=== PATIENT | female | born 1955 | race Caucasian/White ===

== ENCOUNTER 2016-10-05 06:47 | Day surgery (SDC) | payer OTHER ==
[~2016-10-05 06:47] MED LIST: Buffered Lidocaine 0.9% SYRIN* 5 ML/SYR SYRINGE INTRADERM ONE; Famotidine IV* 10 MG/ML 2 ML (20 mg) IV ONE; Metoclopramide TAB* 10 MG PO ONE
[2016-10-05] MEDS ORDERED: Bupivacaine 0.5% SDV PF* 30 ML VIAL ONE (07:02)
[2016-10-05] MEDS ORDERED: Metoclopramide TAB* 10 MG ONE (07:10)
[2016-10-05] MEDS ORDERED: Famotidine IV* 10 MG/ML 2 ML (20 mg) ONE (07:10)
[2016-10-05] MEDS ORDERED: ceFAZolin 2 GM PREMIX(*) 2 GM/50 ML BAG IVPB ONE (07:10)
[2016-10-05] MEDS ORDERED: Ketorolac INJ* 30 MG/ML 1 ML VIAL ONE (07:29)
[2016-10-05] MEDS ORDERED: Lidocaine 2% PF * 5 ML VIAL ONE (07:29)
[2016-10-05] MEDS ORDERED: Dexamethasone IV* 4 MG/ML 1 ML (4 MG) ONE (07:29)
[2016-10-05] MEDS ORDERED: Ondansetron INJ* 2 MG/ML VIAL ONE (07:29)
[2016-10-05] MEDS ORDERED: fentaNYL* 50 MCG/ML 2 ML VIAL (100 MCG VIAL) ONE ×2 (07:29→09:16)
[2016-10-05] MEDS ORDERED: Propofol* 10 MG/ML 20 ML BTL IV PUSH ONE ×2 (07:29→08:38)
[2016-10-05] MEDS ORDERED: KETAMINE HCL* 50 MG/ML 10 ML VIAL ONE (07:30)
[2016-10-05] MEDS ORDERED: Midazolam* 1 MG/ML 5 ML VIAL (5 MG) ONE (07:30)
[2016-10-05] MEDS ORDERED: Lidocaine 1% INJ* 10 MG/ML 30 ML SDV ONE (08:05)
[2016-10-05] MEDS ORDERED: Midazolam* 1 MG/ML 2 ML VIAL (2 MG) ONE (08:09)
[2016-10-05] MEDS ORDERED: Ondansetron INJ* 2 MG/ML VIAL IV PRN (08:34)
[2016-10-05] MEDS ORDERED: oxyCODONE/Acetamin 5/325 MG* TAB PO PRN (08:34)
[2016-10-05] MEDS ORDERED: oxyCODONE/Acetamin 5/325 MG* TAB ONE (08:59)
[2016-10-05] MEDS: fentaNYL* 50 MCG/ML 2 ML VIAL (100 MCG VIAL) IV PRN ×2 (09:17→09:42)
[2016-10-05 10:09] VITALS: BP 146/62
--- NOTE | 2016-10-06 13:26 | OP ---
DATE OF OPERATION: 10/05/16 [facility] DATE OF : 53. SURGEON: Hawk Turner MD. PHARMACEUTICAL DEVELOPMENT TECHNICIAN: Sandra Wright PA-C. ANESTHESIOLOGIST: Tyree Judge MD ANESTHESIA: MAC PRE-OP DIAGNOSIS: Painful hardware, right fibula. POST-OP DIAGNOSIS: Painful hardware, right fibula. OPERATIVE PROCEDURE: Removal of right fibular plate. DESCRIPTION OF PROCEDURE: The patient was taken to the operating room where lateral longitudinal incision was made over the distal fibula. We identified the lateral one-third tubular plate, which was removed once the small fragment screws were removed. There was also a front to back lag screw, which was removed as well. We then irrigated it thoroughly, closing with Vicryl and nylon sutures and a compression dressing applied. [id number]/[facility] #: [id number] MTDD
== END 2016-10-05 10:09 | disposition home or self-care (01) ==
LOC: OR 06:47
PROVIDERS: ATTEND Orthopaedic Surgery
DX: T84.84XA Pain due to internal orthopedic prosthetic devices, implants and grafts, initial encounter (principal); Y79.2 Prosthetic and other implants, materials and accessory orthopedic devices associated with adverse incidents; I10 Essential (primary) hypertension; M47.816 Spondylosis without myelopathy or radiculopathy, lumbar region
CPT/HCPCS: 88300; A9270-GY; J0690; J1100; J1885; J2001; J2250; J2405; J2704; J3010

== ENCOUNTER 2017-10-15 12:15 | Emergency (ER) | payer OTHER ==
[2017-10-15 12:49] VITALS: BP 183/86
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
--- NOTE | 2017-10-15 14:38 | RAD ---
INDICATION: Pain of the third phalanx after traumatic injury 5 days earlier COMPARISON: None. TECHNIQUE: 3 views of the right foot were obtained. FINDINGS: Depicted best in the AP view, there is an obliquely oriented nondisplaced fracture spanning the right third toe proximal phalanx diaphysis. Remaining visualized bones are intact and appropriately aligned. Incidentally noted is an enthesophyte at the origin of the plantar fascia on the calcaneal tubercle. IMPRESSION: FRACTURED RIGHT THIRD TOE PROXIMAL PHALANX.
== END 2017-10-15 15:25 | disposition home or self-care (01) ==
LOC: UCEAST 12:15
DX: S92.514A Nondisplaced fracture of proximal phalanx of right lesser toe(s), initial encounter for closed fracture (principal); W22.8XXA Striking against or struck by other objects, initial encounter; Y93.9 Activity, unspecified; Y92.9 Unspecified place or not applicable; I10 Essential (primary) hypertension; Z82.49 Family history of ischemic heart disease and other diseases of the circulatory system
CPT/HCPCS: 99211; G0463

== ENCOUNTER 2018-11-09 15:17 | Emergency (ER) | payer MEDICARE, OTHER ==
[2018-11-09 15:26] VITALS: BP 181/101
[2018-11-09] MEDS ORDERED: Ibuprofen TAB* 600 MG PO ONE (15:41)
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
== END 2018-11-09 17:29 | disposition home or self-care (01) ==
LOC: UCEAST 15:17
DX: M79.674 Pain in right toe(s) (principal); M79.661 Pain in right lower leg; S92.501D Displaced unspecified fracture of right lesser toe(s), subsequent encounter for fracture with routine healing; X58.XXXD Exposure to other specified factors, subsequent encounter; I10 Essential (primary) hypertension
CPT/HCPCS: 99211; A9270-GY; G0463